=== PATIENT | male | born 1955 | race Caucasian/White ===

== ENCOUNTER → 2018-02-22 12:40 | Outpatient (CLI) | payer OTHER, SELFPAY ==
--- NOTE | 2018-02-22 | DI.US.S_ITS ---
PROCEDURE: US ABDOMEN COMPLETE INDICATIONS: LIVER TECHNIQUE: Real-time scanning was performed of the abdominal and retroperitoneal organs, with image documentation. COMPARISON: None. FINDINGS: Liver: Liver demonstrates coarse echogenic appearance, and there is a right hepatic cyst measuring 2.3 x 1.8 x 1.9 cm. Gallbladder: Cholelithiasis is present, and there is no definite gallbladder wall thickening. No pericholecystic fluid or sonographic Tse sign. Biliary ducts: Intrahepatic bile ducts are non-dilated. Extrahepatic bile duct caliber measures 6 mm. Normal is 6-7 mm or less in diameter, or 10 mm or less post-cholecystectomy. Pancreas: 7 x 9 mm cystic lesion in the body of pancreas, which is technically indeterminate. Spleen: Spleen is normal in size and homogeneous in echotexture. Kidneys: Kidneys are normal in size and echotexture. Right kidney measures 12.0 cm long; left kidney measures 12.6 cm long. No hydronephrosis or nephrolithiasis. No solid masses. Aorta: Visualized aorta is normal in caliber at less than 3 cm. Iliacs: Proximal common iliac arteries are normal in caliber at less than 2.5 cm. IVC: Intrahepatic inferior vena cava is patent. Miscellaneous: No free abdominal fluid. IMPRESSION: Echogenic liver suggestive of diffuse hepatocellular disease or fatty infiltration. Right hepatic cyst. Incidental cystic lesion seen in the body of pancreas measuring 9 mm, technically indeterminate. Recommend further evaluation and continued surveillance with pancreatic protocol CT or MRI, as cystic neoplasm cannot be excluded. Dictated by: Tyson Grier M.D. on 02/22/2018 at 14:59 Approved by: Tyson Grier M.D. on 02/22/2018 at 15:09
--- NOTE | 2018-02-22 | DI.MRI.S_ITS ---
PROCEDURE: MR HEAD/BRAIN WO CON INDICATIONS: Decreased memory TECHNIQUE: Non-contrast axial T1 spin echo, axial T2 fast spin echo, sagittal and axial FLAIR, coronal T2 fast spin echo, axial gradient echo, axial diffusion and ADC through the brain. COMPARISON: None. FINDINGS: Image quality: Excellent. CSF spaces: Ventricles appear symmetric in size and shape. Basal cisterns are patent. No extra-axial fluid collections. Brain: No intracranial bleeds or mass effects. There is cerebral volume loss for age. There are periventricular and deep white matter chronic small vessel ischemic changes. Brainstem appears normal. Diffusion-weighted images show no acute ischemic insults. No chronic ischemic insults. Normal intravascular flow voids are present. Skull and face: Calvarial bone marrow is normal in signal. Orbits are normal. Sinuses: Sinuses demonstrate trace pansinus mucosal thickening. IMPRESSION: 1. No acute intracranial process. 2. Moderate atrophy, greater than expected for patient's stated age. Dictated by: Christianne Salgado M.D. on 02/22/2018 at 14:00 Approved by: Christianne aSlgado M.D. on 02/22/2018 at 14:18
== END ==
PROVIDERS: Visit Provider Family Medicine
DX: K74.60 Unspecified cirrhosis of liver (principal); K86.9 Disease of pancreas, unspecified
CPT/HCPCS: 70551; 76700

== ENCOUNTER → 2018-03-29 09:32 | Outpatient (CLI) | payer OTHER, SELFPAY ==
--- NOTE | 2018-03-29 | DI.MRI.S_ITS ---
PROCEDURE: MR ABDOMEN WO CON INDICATIONS: PANCREATIC CYST TECHNIQUE: Coronal HASTE through the abdomen, axial 2-D FLASH in- and [id number], and breath-hold T2 FSE with fat saturation through the biliary system and pancreas. Oblique coronal and axial thin-slice HASTE, radial thick-slab HASTE centered on the extrahepatic bile ducts. Intravenous secretin: Not requested. COMPARISON: [facility], US, US ABDOMEN COMPLETE, 02/22/2018, 13:55. FINDINGS: Image quality: Excellent. Pancreas and biliary system: Intra- and extra-hepatic biliary ducts are non dilated. Pancreas is normal in morphology, without adjacent soft tissue edema. Pancreatic duct is normal in caliber, without developmental anomalies, and there is a 6 x 9 mm cyst is seen at the posterior aspect of the pancreatic parenchyma, pancreatic neck area, seen also on ultrasound. Gallbladder appears normal. Other solid organs: Liver is normal in size. Spleen is normal in size. No adrenal nodules. Both kidneys are normal in size, without hydronephrosis. Nodes and vessels: No retroperitoneal or mesenteric adenopathy by size criteria. Aorta and inferior vena cava are normal in size. Bowel and peritoneum: Unenhanced bowel loops are normal in caliber. No free fluid. Lung bases: No basal pleural effusions. Heart size is normal. Bones and soft tissues: No ventral hernias. Bone marrow is of normal overall signal. IMPRESSION: 6 x 9 mm cyst at the posterior pancreatic neck region, within the pancreatic parenchyma, without pancreatic ductal distention. This is indeterminate in etiology, and can easily be seen by ultrasound. Therefore, followup by ultrasound in 6 and 12 months from now is recommended. Dictated by: Antwon Plasencia M.D. on 03/29/2018 at 13:27 Approved by: Antwon Plasencia M.D. on 03/29/2018 at 13:33
== END ==
PROVIDERS: Visit Provider Family Medicine
DX: K86.2 Cyst of pancreas (principal)
CPT/HCPCS: 74181

== ENCOUNTER → 2018-09-08 11:54 | Outpatient (CLI) | payer OTHER, MEDICAID, SELFPAY ==
--- NOTE | 2018-09-08 | DI.US.S_ITS ---
PROCEDURE: US ABDOMEN COMPLETE INDICATIONS: PANCREATIC CYST TECHNIQUE: Real-time scanning was performed of the abdominal and retroperitoneal organs, with image documentation. COMPARISON: [facility], MR, MR ABDOMEN WO CON, 03/29/2018, 9:50. [facility], US, US ABDOMEN COMPLETE, 02/22/2018, 13:55. FINDINGS: Liver: Liver is normal in size and homogeneous in echotexture. Right lobe hepatic cyst essentially unchanged measuring 3.3 x 2.3 x 2.7 cm. There is a new subcentimeter right posterior hepatic lobe cyst. Gallbladder: Multiple gallstones present. No gallbladder wall thickening or pericholecystic fluid. Negative sonographic Tse sign. Biliary ducts: Intrahepatic bile ducts are non-dilated. Extrahepatic bile duct caliber measures 5.0 mm. Normal is 6-7 mm or less in diameter, or 10 mm or less post-cholecystectomy. Pancreas: Visualized portions of the pancreas are sonographically normal. Pancreatic body cyst no significant change measuring 1.4 x 1.3 x 0.6 cm. Spleen: Spleen is normal in size and homogeneous in echotexture. Kidneys: Right kidney grossly normal measuring 11.4 cm. Left kidney obscured by overlying bowel gas. Aorta: Visualized aorta is normal in caliber at less than 3 cm. Iliacs: Proximal common iliac arteries are normal in caliber at less than 2.5 cm. IVC: Intrahepatic inferior vena cava is patent. Miscellaneous: No free abdominal fluid. IMPRESSION: 1. No significant change in hepatic and pancreatic cysts, with subtle size differences likely technically related. Dictated by: Jamie MIMS Interpreted: Enrique Graves MD on 09/08/2018 at 14:23 Approved by: Enrique Graves M.D. on 09/08/2018 at 17:16
== END ==
PROVIDERS: Visit Provider Family Medicine
DX: K86.2 Cyst of pancreas (principal); K76.89 Other specified diseases of liver; K80.80 Other cholelithiasis without obstruction
CPT/HCPCS: 76700